=== PATIENT | female | born 1960 | race Caucasian/White ===

== ENCOUNTER 2018-01-31 09:27 | Emergency (ER) | payer SELFPAY ==
[~2018-01-31] VITALS: Ht 162.6 cm; Wt 65.3 kg
[2018-01-31 09:32] VITALS: BP 156/90
--- NOTE | 2018-01-31 09:38 | NUR ---
PT AMB TO BED 3.
--- NOTE | 2018-01-31 09:39 | NUR ---
58/F BIB SELF WITH C/O PAINFUL URINATION SINCE YESTERDAY. DENIES N/V/D; SKIN IS PINK/WARM/DRY; AAOX4 WITH EVEN AND STEADY GAIT; LUNGS CLEAR BL; HR EVEN AND REGULAR; PT DENIES ANY FEVER, CP, SOB, OR COUGH AT THIS TIME; PATIENT STATES PAIN OF 5/10 AT THIS TIME; VSS; PATIENT POSITIONED FOR COMFORT; HOB ELEVATED; BEDRAILS UP X2; BED DOWN. ER MD MADE AWARE OF PT STATUS.
--- NOTE | 2018-01-31 09:43 | NUR ---
Patient being evaluated by DR Holliday at bedside.
[2018-01-31 09:58] VITALS: BP 137/72
--- NOTE | 2018-01-31 09:58 | NUR ---
Patient discharged with v/s stable. Written and verbal after care instructions given and explained. Patient alert, oriented and verbalized understanding of instructions. Ambulatory with steady gait. All questions addressed prior to discharge. ID band removed. Patient advised to follow up with PMD. Rx of LEVAQUIN & PYRIDIUM given. Patient educated on indication of medication including possible reaction and side effects. Opportunity to ask questions provided and answered.
== END 2018-01-31 09:58 | disposition home or self-care (01) ==
LOC: MED 09:27
DX: N30.90 Cystitis, unspecified without hematuria (principal); N76.0 Acute vaginitis
CPT/HCPCS: 81002; 81025; 99283